=== PATIENT | female | born 1955 | race African-American/Black ===

== ENCOUNTER 2022-03-20 17:14 | Emergency (ER) | payer MEDICARE ==
[~2022-03-20] VITALS: Ht 160 cm; Wt 54.4 kg
--- NOTE | 2022-03-20 17:14 | NUR ---
BIBS C/O HEADACHE, DIZZINESS, PALPITATIONS, RINGING OF EARS X 3 WEEKS WENT TO URGENT CARE TODAYA ND HAD HIGH BLOOD PRESSURE.
[2022-03-20 18:18] LABS: BASOPHILS % (AUTO) 0.4 % (0.0-2.0); EOSINOPHILS % (AUTO) 0.4 % (0.0-6.0); HEMATOCRIT 41 % (33-45); HEMOGLOBIN 13.6 g/dL (11.5-14.8); LYMPHOCYTES # (AUTO) 1.3 K/uL (0.8-4.8); LYMPHOCYTES % (AUTO) 20.3 % (20.0-44.0); MEAN CORPUSCULAR HGB CONC 33 g/dl (31.0-36.0); MEAN CORPUSCULAR VOLUME 92 fL (82-100); MONOCYTES # (AUTO) 0.5 K/uL (0.1-1.30); MONOCYTES % (AUTO) 7.8 % (2.0-12.0); NEUTROPHILS # (AUTO) 4.5 K/uL (1.8-8.9); NEUTROPHILS % (AUTO) 71.1 % (43.0-81.0); PLATELET COUNT (AUTO) 189 K/uL (150-450); RED BLOOD CELL COUNT(AUTO) 4.47 MIL/uL (4.0-5.2); WHITE BLOOD COUNT (AUTO) 6.4 K/uL (4.3-11.0)
[2022-03-20 18:46] LABS: ALANINE AMINOTRANSFERASE 21 U/L (12-78); ALBUMIN 4.3 g/dL (3.4-5.0); ALKALINE PHOSPHATASE 104 U/L (46-116); ASPARTATE AMINOTRANSFERASE 25 U/L (15-37); BILIRUBIN,DIRECT 0.1 mg/dL (0.0-0.2); BILIRUBIN,TOTAL 0.3 mg/dL (0.2-1.0); CALCIUM, SERUM 9.9 mg/dL (8.5-10.1); CARBON DIOXIDE 26 mmol/L (21-32); CHLORIDE 106 mmol/L (98-107); GLUCOSE 101 mg/dL (74-106); POTASSIUM 3.3 mmol/L (3.5-5.1); SODIUM SERUM 142 mmol/L (136-145); TOTAL PROTEIN, SERUM 8.3 g/dL (6.4-8.2); UREA NITROGEN, BLOOD 14 mg/dL (7-18)
--- NOTE | 2022-03-20 19:25 | NUR ---
BP 163/103 104BPM
[2022-03-20] MEDS ORDERED: POTA20TA83 PO (19:27)
[2022-03-20] MEDS ORDERED: AMLO10TA4 PO (19:27)
--- NOTE | 2022-03-20 19:59 | NUR ---
Patient discharged to home in stable condition. Written and verbal after care instructions given. Patient verbalizes understanding of instruction. Pt ambulatory with a steady gait
[2022-03-20 20:00] VITALS: BP 155/89
[2022-03-21] MEDS ORDERED: AMLO10TA4 PO (10:00)
[2022-03-21] MEDS ORDERED: POTA20TA83 PO (10:00)
== END 2022-03-20 20:00 | disposition home or self-care (01) ==
LOC: ER 17:16
DX: I10 Essential (primary) hypertension (principal); E87.6 Hypokalemia
CPT/HCPCS: 36415; 70450-TC; 71045-TC; 80048-TC; 80076-TC; 84484-TC; 85025-TC